=== PATIENT | male | born 1985 | race Caucasian/White ===

== ENCOUNTER 2018-04-02 23:50 | Inpatient (IN) | payer OTHER ==
[~2018-04-02] VITALS: Ht 177.8 cm; Wt 66.4 kg
[2018-04-03 00:06] LABS: BASOPHIL (%) 0.5 % (0-1); BASOPHIL COUNT 0.1 K/uL (0-0.1); EOSINOPHIL (%) 2.2 % (0-5); EOSINOPHIL COUNT 0.2 K/uL (0-0.3); HEMATOCRIT 48.1 % (38.0-50.0); HEMOGLOBIN 16.8 G/DL (12.5-16.6); IMMATURE GRANULOCYTE (%) 0.4 % (0.0-0.7); LYMPHOCYTE (%) 25.9 % (15-42); LYMPHOCYTE COUNT 2.7 K/uL (1.0-2.8); MCH 30.6 PG (29.0-34.0); MCHC 34.9 G/DL (30.0-36.0); MCV 87.6 FL (86-99); MONOCYTE (%) 6.6 % (3-12); MONOCYTE COUNT 0.7 K/uL (0-0.8); NEUTROPHIL (%) 64.4 % (45-76); NEUTROPHIL COUNT 6.7 K/uL (1.8-6.4); NRBC (%) 0.2 /100 WBC (0-0); PLATELET COUNT 265 K/uL (156-360); RBC DIS.WIDTH-CV 12.1 % (11.8-14.6); RBC DIS.WIDTH-SD 39.5 % (39-53); RED BLOOD COUNT 5.49 M/uL (4.00-5.50); WHITE BLOOD COUNT 10.3 K/uL (4.1-10.2)
[2018-04-03 00:15] LABS: PTT 32.6 SEC (25-37)
[2018-04-03 00:16] LABS: AMYLASE 59 IU/L (1-118); CHLORIDE 101 mEq/L (99-109); POTASSIUM 3.5 mEq/L (3.7-5.4); SODIUM 140 mEq/L (136-147)
[2018-04-03 00:18] LABS: GLUCOSE 106 mg/dL (70-99)
[2018-04-03 00:21] LABS: SERUM ETHYL ALCOHOL < 10 mg/dL
[2018-04-03 00:22] LABS: GFR ESTIMATE (CALCULATED) > 59 mL/min/ (58.99-99999)
[2018-04-03 00:23] LABS: UREA NITROGEN (BUN) 12 mg/dL (9-23)
[2018-04-03 00:25] LABS: LIPASE 13 U/L (1.0-51.0)
[2018-04-03 00:31] LABS: TROP-I INTERPRETATION NEGATIVE; TROPONIN-I < 0.01 ng/mL (0.0-0.30)
[2018-04-03 02:19] LABS: APPEARANCE CLEAR ((CLEAR)); BILIRUBIN NEGATIVE; BLOOD NEGATIVE; COLOR YELLOW ((YELLOW)); GLUCOSE (STRIP) NEGATIVE; KETONES 5; LEUKOCYTES NEGATIVE; NITRITE NEGATIVE; PROTEIN (STRIP) NEGATIVE; UCUL ADDED? NO
[2018-04-03 02:24] LABS: SPECIFIC GRAVITY > 1.060 (1.000-1.030)
[2018-04-03 03:14] LABS: AMPHETAMINE NEGATIVE (500 ng/mL); BARBITURATES NEGATIVE (200 ng/mL); BENZODIAZEPINES NEGATIVE (150 ng/mL); BUPRENORPHINE NEGATIVE (10 ng/mL); COCAINE NEGATIVE (150 ng/mL); METHADONE NEGATIVE (200 ng/mL); METHAMPHETAMINE NEGATIVE (500 ng/mL); OPIATES (MORPHINE) NEGATIVE (100 ng/mL); OXYCODONE NEGATIVE (100 ng/mL); PHENCYCLIDINE NEGATIVE (25 ng/mL); PROPOXYPHENE NEGATIVE (300 ng/mL); THC CANNABINOIDS PRESUMPTIVE POSITIVE (50 ng/mL); TRICYCLIC ANTIDEPRESSANTS NEGATIVE (300 ng/mL)
[2018-04-03 09:09] VITALS: BP 134/83
[2018-04-03 09:17] VITALS: BP 134/83
[2018-04-03 16:16] VITALS: BP 112/64
[2018-04-04 09:04] VITALS: BP 124/83
[2018-04-04 16:33] VITALS: BP 132/75
[2018-04-05 09:35] VITALS: BP 123/60
[2018-04-05 17:03] VITALS: BP 126/78
[2018-04-06] MEDS ORDERED: ESCITALOPRAM OX10 MG PO (09:25)
[2018-04-06 09:36] VITALS: BP 140/86
== END 2018-04-06 12:08 | disposition home or self-care (01) | DRG 882 ==
LOC: TRA 23:50 → EDOF 04-03 06:24 → 1WEST 04-03 06:24 → ENRESERV 04-03 08:13 → 1WEST 04-03 09:01
PROVIDERS: Emergency Medicine
DX: F43.23 Adjustment disorder with mixed anxiety and depressed mood (principal); T71.162A Asphyxiation due to hanging, intentional self-harm, initial encounter; R45.851 Suicidal ideations; F12.20 Cannabis dependence, uncomplicated; R40.2410 Glasgow coma scale score 13-15, unspecified time; M51.37 Other intervertebral disc degeneration, lumbosacral region; M99.73 Connective tissue and disc stenosis of intervertebral foramina of lumbar region; Z56.0 Unemployment, unspecified
CPT/HCPCS: 70450; 70498; 71260; 72125; 72129; 72132; 73564; 74177; 80048; 81003; 82150; 83605; 83690; 84484; 84999; 85025; 85610; 85730; 86850; 86900; 86901; 90837; 99281; 99285; G0480